=== PATIENT | female | born 1985 | race Caucasian/White ===

== ENCOUNTER 2017-10-02 20:33 | Emergency (ER) | payer BC ==
--- NOTE | 2017-10-02 21:29 | RADIOLOGY REPORT (SQ) ---
EXAM DESCRIPTION: HAND LEFT 3 VIEWS COMPLETED DATE/TIME: 10/02/2017 8:58 pm REASON FOR STUDY: laceration COMPARISON: None. EXAM PARAMETERS: NUMBER OF VIEWS: Three views. TECHNIQUE: AP, lateral and oblique radiographic images acquired of the left hand. LIMITATIONS: None. FINDINGS: MINERALIZATION: Normal. BONES: No acute fracture or dislocation. No worrisome bone lesions. JOINTS: No effusions. SOFT TISSUES: There is a gauze bandage on the index finger. OTHER: No other significant finding. IMPRESSION: NEGATIVE STUDY OF THE LEFT HAND. NO RADIOGRAPHIC EVIDENCE OF ACUTE INJURY. TECHNICAL DOCUMENTATION: JOB ID: [id number] [employer]- All Rights Reserved Reading location - IP/workstation name: [email or web address]
[2017-10-03] MEDS ORDERED: DIPH/PERTUSS(ACELL)/TETANUS VAC/PF 0.5 ML SYR (>=10YO) IM ONE (00:53)
[2017-10-03] MEDS ORDERED: CEPHALEXIN 500 MG CAPSULE PO ONE (00:53)
--- NOTE | 2017-10-03 01:01 | ER Document Report ---
HPI - HPI Pain Level: 3 Notes: Patient is a 32-year-old female with no significant past medical history who presents to the ED complaining of a laceration to the lateral second digit of her hand prior to arrival. Patient states that she cut it with a knife when she is working in the kitchen. Patient is unsure of her last tetanus. Patient states that she is still able to flex her finger and extended without any difficulties. The pain does not radiate. She has no associated numbness or tingling. Denies any drug allergies. No other concerns or complaints at this time. Denies any headache, fever, URI, sore throat, chest pain, palpitations, syncope, cough, shortness of breath, wheeze, dyspnea, abdominal pain, nausea/ vomiting/diarrhea, urinary retention, dysuria, hematuria, muscle paralysis/ weakness, or rash. - ROS Systems Reviewed and Negative: Yes All other systems reviewed and negative - CONSTITUTIONAL Constitutional: DENIES: Fever, Chills - NEURO Neurology: REPORTS: Headache - MUSCULOSKELETAL Musculoskeletal: REPORTS: Extremity pain - left first finger Past Medical History - Social History Smoking Status: Never Smoker Chew tobacco use (# tins/day): No Frequency of alcohol use: None Drug Abuse: None Family History: Reviewed & Not Pertinent Patient has suicidal ideation: No Patient has homicidal ideation: No Renal/ Medical History: Denies: Hx Peritoneal Dialysis Past Surgical History: Reports: Hx Cholecystectomy - 2010, Hx Orthopedic Surgery - RACL 99 Vertical Provider Document - CONSTITUTIONAL Agree With Documented VS: Yes Notes: PHYSICAL EXAMINATION: GENERAL: Well-appearing, well-nourished and in no acute distress. LUNGS: Breath sounds clear to auscultation bilaterally and equal. No wheezes rales or rhonchi. HEART: Regular rate and rhythm without murmurs, rubs, gallops. Musculoskeletal: Left index finger: + 2cm linear, superficial laceration without any width associated. Wound edges approximate w/o need to pull it together. FROM to passive/active. Strength 5+/5. N/V intact distal. bleeding controlled. Extremities: No cyanosis, clubbing, or edema b/l. Peripheral pulses 2+. Capillary refill less than 3 seconds. NEUROLOGICAL: Normal speech, normal gait. Normal sensory, motor exams PSYCH: Normal mood, normal affect. SKIN: see above. Warm, Dry, normal turgor, no rashes or lesions noted. - INFECTION CONTROL TRAVEL OUTSIDE OF THE [place] IN LAST 30 DAYS: No Course - Re-evaluation Re-evalutation: 10/03/17 01:30 Patient is an afebrile, well-hydrated, 32-year-old female who presents to the ED with a finger laceration, second digit of the left hand. Vitals are acceptable. PE is otherwise unremarkable for any neurovascular compromise, obvious tendon/ligament rupture, obvious fracture/dislocation, septic joint. Patient has no significant tachycardia, tachypnea, or hypoxia. She is tolerating p.o. without difficulties and is nontoxic-appearing. No labs or imaging warranted at this time based on H&P. Wound was thoroughly irrigated and cleansed. Reviewed risk and benefit of suture versus Dermabond. Patient declined sutures at this time and would like Dermabond. Dermabond was utilized successfully without any complications. Wound edges were approximated appropriately. Wound dressing was placed and a splint applied. First dose of Keflex given today. I will send her home with a prescription for Keflex. Tetanus was also updated today. Conservative measures otherwise for symptoms. Recheck with your PCM in 3-5 days. Consider consult orthopedics. Return to the ED with any worsening/concerning symptoms otherwise as reviewed in discharge. Patient is in agreement. - Vital Signs Vital signs: Temp Pulse Resp BP Pulse Ox 98.8 F 82 16 125/85 100 10/02/17 20:40 10/02/17 20:40 10/02/17 20:40 10/02/17 20:40 10/02/17 20:40 Procedures - Laceration/Wound Repair Left Finger 2nd digit Time completed: 01:25 Wound length (cm): 2 Wound's Depth, Shape: Superficial, Linear Laceration pre-procedure: Other - chlorhexadine/saline/irrigation Wound explored: Clean, No foreign body removed Irrigated w/ Saline (mLs): 200 Wound Debrided: none Wound Repaired With: Dermabond Post-procedure wound care: Sterile dressing applied, Splint applied Post-procedure NV exam normal: Yes Complications: No Discharge - Discharge Clinical Impression: Finger laceration Qualifiers: Encounter type: initial encounter Finger: index finger Damage to nail status: without damage Foreign body presence: without foreign body Laterality: left Qualified Code(s): S61.211A - Laceration without foreign body of left index finger without damage to nail, initial encounter Condition: Stable Disposition: HOME, SELF-CARE Instructions: Prophylactic Antibiotic ([facility]), Soap Cleansing ([facility]), Tetanus Immunization Given ([facility]) Additional Instructions: Do not shower or bathe for 24 hours. After 24 hours you may shower but no submersion of the wound under water. Keep the original dressing on the wound for 24 hours unless the drainage soaks through. Keep splint on for the next 10 days if able, but you may gradually move your finger through range of motion daily using caution not to open the wound. Return to the ED and/or your PCM in 2-3 days for a recheck. Monitor for any signs of worsening pain or redness, purulent drainage, streaks, and/or fever. Return to the ED if noticing any of the above symptoms or as needed. Take medications as directed. Prescriptions: Cephalexin Monohydrate [Keflex 500 mg Capsule] 500 mg PO BID #20 capsule Referrals: [facility] [Provider Group] - Follow up as needed
[2017-10-03 01:59] VITALS: BP 112/73
== END 2017-10-03 01:56 | disposition home or self-care (01) ==
LOC: ER 20:33
PROC: 0HQGXZZ Repair Left Hand Skin, External Approach (ICD-10-PCS; principal; 2017-10-02)
DX: S61.211A Laceration without foreign body of left index finger without damage to nail, initial encounter (principal); W26.0XXA Contact with knife, initial encounter; Y93.G1 Activity, food preparation and clean up; Y92.090 Kitchen in other non-institutional residence as the place of occurrence of the external cause; Z23 Encounter for immunization; Z90.49 Acquired absence of other specified parts of digestive tract
CPT/HCPCS: 90715; 99282

== ENCOUNTER 2019-04-10 20:45 | Emergency (ER) | payer BC ==
[2019-04-10 20:52] VITALS: BP 126/83
== END 2019-04-11 04:37 | disposition left against medical advice (07) ==
LOC: ER 20:45
DX: Z53.21 Procedure and treatment not carried out due to patient leaving prior to being seen by health care provider (principal)